=== PATIENT | male | born 1990 | race Caucasian/White ===

== ENCOUNTER 2020-03-13 11:41 | Emergency (ER) | payer BC ==
--- NOTE | 2020-03-13 12:39 | ER Document Report ---
ED Medical Screen (RME) - General Stated Complaint: ABDOMINAL PAIN, VOMITING BLOOD Time Seen by Provider: 03/13/20 12:31 Notes: Patient is a 29-year-old male who presents to the emergency department with a chief complaint of right lower and right upper abdominal pain. Patient states that the pain has been going on for the past 2 to 3 weeks. Patient states that over the past few days, he has had some streaks of blood in his vomit and will vomit every once in a while. Patient states that he started "power lifting" recently and was not sure if this was due to type. He denies any past medical history. He does not take any medications on a daily basis. Dates that he had a bowel movement this morning. Denies any melena stools. Exam: Tender right upper quadrant more than right lower. Exam limited due to patient in sitting position. I have greeted and performed a rapid initial assessment of this patient. A comprehensive ED assessment and evaluation of the patient, analysis of test results and completion of medical decision making process will be conducted by an additional ED providers. - Related Data Allergies/Adverse Reactions: No Known Allergies Allergy (Verified 03/13/20 12:33) Physical Exam - Vital signs Vitals: Temp Pulse Resp BP Pulse Ox 98.8 F 55 L 16 105/50 L 99 03/13/20 12:15 03/13/20 12:15 03/13/20 12:15 03/13/20 12:15 03/13/20 12:15 Course - Vital Signs Vital signs: Temp Pulse Resp BP Pulse Ox 98.8 F 55 L 16 105/50 L 99 03/13/20 12:15 03/13/20 12:15 03/13/20 12:15 03/13/20 12:15 03/13/20 12:15
[2020-03-13 14:00] LABS: ABSOLUTE EOSINOPHILS # (AUTO) 0.3 10^3/uL (0.0-0.6); ABSOLUTE LYMPHOCYTES (AUTO) 1.4 10^3/uL (0.5-4.7); ABSOLUTE MONOCYTES (AUTO) 0.5 10^3/uL (0.1-1.4); ABSOLUTE NEUT (AUTO) 4.8 10^3/uL (1.7-8.2); BASOPHILS % (AUTO) 0.6 % (0-2); EOSINOPHILS % (AUTO) 4.7 % (0-6); HEMATOCRIT 40.8 % (37.9-51.0); HEMOGLOBIN 14.7 g/dL (13.5-17.0); LYMPHOCYTES % (AUTO) 19.9 % (13-45); MEAN CORPUSCULAR HEMOGLOBIN 33.6 pg (27.0-33.4); MEAN CORPUSCULAR HGB CONC 36.1 g/dL (32.0-36.0); MEAN CORPUSCULAR VOLUME 93 fl (80-97); MONOCYTES % (AUTO) 7.2 % (3-13); PLATELET COUNT 261 10^3/uL (150-450); RED BLOOD COUNT 4.38 10^6/uL (4.35-5.55); RED CELL DISTRIBUTION WIDTH 12.7 % (11.5-14.0); SEGMENTED NEUTROPHILS % (AUTO) 67.6 % (42-78); TOTAL CELLS COUNTED % (AUTO) 100 %; WHITE BLOOD COUNT 7.1 10^3/uL (4.0-10.5)
--- NOTE | 2020-03-13 14:05 | RADIOLOGY REPORT (SQ) ---
EXAM DESCRIPTION: U/S ABDOMEN LIMITED W/O DOP IMAGES COMPLETED DATE/TIME: 03/13/2020 12:23 pm REASON FOR STUDY: Right sided abdominal pain COMPARISON: None. TECHNIQUE: Dynamic and static grayscale images acquired of the abdomen and recorded on PACS. Khario josé selected color Doppler and spectral images recorded. LIMITATIONS: None. FINDINGS: PANCREAS: Tail of the pancreas is not visualized due to overlying bowel gas. The head and body of the pancreas have normal contour. No pancreatic ductal dilation. LIVER: No masses. Echotexture normal. LIVER VASCULATURE: Normal directional flow of the main portal vein and hepatic veins. GALLBLADDER: Biliary sludge with possible gallstone at the gallbladder neck. No pericholecystic fluid . No wall thickening. ULTRASOUND-DETECTED FOUNTAIN'S SIGN: Positive. INTRAHEPATIC DUCTS AND COMMON DUCT: CBD and intrahepatic ducts normal caliber. No filling defects. INFERIOR VENA CAVA: Normal flow. AORTA: No aneurysm. RIGHT KIDNEY: Normal size. Normal echogenicity. No solid or suspicious masses. No hydronephrosis. No calcifications. PERITONEAL AND RIGHT PLEURAL SPACE: No ascites or effusions. OTHER: No other significant findings. IMPRESSION: 1. Biliary sludge with possible gallstone at the gallbladder neck. Positive sonographic Fountain sign. No gallbladder wall thickening or pericholecystic fluid. No biliary ductal dilation. Findings are equivocal for acute cholecystitis. Clinical correlation and correlation with laboratory values is r ecommended. TECHNICAL DOCUMENTATION: JOB ID: [id number] 2010 [employer]- All Rights Reserved Reading location - IP/workstation name: [email or web address]
[2020-03-13 14:17] LABS: ALBUMIN 4.3 g/dL (3.5-5.0); ALKALINE PHOSPHATASE 86 U/L (38-126); ANION GAP 6 (5-19); ASPARTATE AMINO TRANSFERASE 29 U/L (17-59); BILIRUBIN,DIRECT 0.4 mg/dL (0.0-0.4); BILIRUBIN,TOTAL 0.7 mg/dL (0.2-1.3); BLOOD UREA NITROGEN 11 mg/dL (7-20); CALCIUM 9.3 mg/dL (8.4-10.2); CARBON DIOXIDE 28 mmol/L (22-30); CHLORIDE 106 mmol/L (98-107); GLUCOSE 81 mg/dL (75-110); POTASSIUM 4.5 mmol/L (3.6-5.0)
[2020-03-13] MEDS ORDERED: NORMAL SALINE 1000 ML 1,000 ML IV ONE (15:09)
[2020-03-13] MEDS ORDERED: ONDANSETRON HCL INJ/PF 4 MG/2 ML SDV IV ONE (15:09)
[2020-03-13] MEDS ORDERED: HYDROMORPHONE HCL INJ/PF 2 MG/ML AMPULE IV ONE (15:09)
--- NOTE | 2020-03-13 15:29 | ER Document Report ---
ED GI/ - General Chief Complaint: Abdominal Pain Stated Complaint: ABDOMINAL PAIN, VOMITING BLOOD Time Seen by Provider: 03/13/20 12:31 Primary Care Provider: KORY SRINIVASAN MD [ACTIVE STAFF] - Follow up tomorrow MAISHA SYED MD [ACTIVE STAFF] - Follow up tomorrow Mode of Arrival: Ambulatory Information source: Patient Notes: This is a 29-year-old male here today for abdominal pain ongoing for 2 weeks. Pain is located in the right side of abdomen and is a sharp stabbing pain. The pain is 1-2 out of 10 for most of the day and flares up to an 8 out of 10 a couple times a day. He has associated vomiting with no nausea. Bending makes the pain worse and sitting still or lying still makes the pain better. He has tried ibuprofen [id number] with no relief. Food does not appear to worsen his pain symptoms. - HPI Patient complains to provider of: Abdominal pain Onset: Last week Timing/Duration: Constant Quality of pain: Sharp Severity at maximum: Severe Severity in ED: Moderate Location: RUQ, RLQ Associated symptoms: Vomiting. denies: Chills, Constipation, Diarrhea, Dysuria, Fever, Hematuria, Hurts to breath, Lightheaded, Loss of appetite, Nausea, Radiates to shoulder, Shortness of breath, Syncope Exacerbated by: Movement, Other - bending Relieved by: Remaining still Similar symptoms previously: No Recently seen / treated by doctor: No - Related Data Allergies/Adverse Reactions: amoxicillin [From Augmentin] Allergy (Verified 03/13/20 12:40) clavulanic acid [From Augmentin] Allergy (Verified 03/13/20 12:40) Past Medical History - General Information source: Patient - Social History Smoking Status: Current Every Day Smoker Chew tobacco use (# tins/day): No Frequency of alcohol use: Occasional Drug Abuse: Marijuana Occupation: technical services analyst Family History: Reviewed & Not Pertinent Patient has homicidal ideation: No - Past Medical History Cardiac Medical History: Reports: None Pulmonary Medical History: Reports: None EENT Medical History: Reports: None Neurological Medical History: Reports: None Endocrine Medical History: Reports: None Renal/ Medical History: Reports: None Malignancy Medical History: Reports None GI Medical History: Reports: None Musculoskeletal Medical History: Reports None Skin Medical History: Reports None Psychiatric Medical History: Reports: None Traumatic Medical History: Reports: None Infectious Medical History: Reports: None Surgical Hx: Negative Past Surgical History: Reports: None Review of Systems - Review of Systems Constitutional: No symptoms reported. denies: Chills, Fever, Weakness EENT: No symptoms reported. denies: Blurred vision, Double vision, Difficulty swallowing Cardiovascular: Chest pain - Last week, none recently. denies: Syncope, Dizziness Respiratory: No symptoms reported. denies: Cough, Short of breath Gastrointestinal: Abdominal pain, Vomiting - None today. denies: Diarrhea, Nausea, Constipation, Blood streaked bowels Genitourinary: No symptoms reported. denies: Dysuria, Flank pain Male Genitourinary: No symptoms reported Musculoskeletal: No symptoms reported Skin: No symptoms reported Hematologic/Lymphatic: No symptoms reported Neurological/Psychological: No symptoms reported. denies: Weakness, Gait changes Physical Exam - Vital signs Vitals: Temp Pulse Resp BP Pulse Ox 98.8 F 55 L 16 105/50 L 99 03/13/20 12:15 03/13/20 12:15 03/13/20 12:15 03/13/20 12:15 03/13/20 12:15 - General General appearance: Appears well In distress: Mild - HEENT Head: Normocephalic Eyes: Normal Conjunctiva: Normal Cornea: Normal Nasal: Normal Mouth/Lips: Normal - Respiratory Respiratory status: No respiratory distress Breath sounds: Normal - Cardiovascular Rhythm: Regular Heart sounds: Normal auscultation, S1 appreciated, S2 appreciated Murmur: No - Abdominal Inspection: Normal Distension: No distension Bowel sounds: Normal Tenderness: Tender, McBurney's point, Fountain's sign. No: Guarding Organomegaly: No organomegaly - Back Back: Normal, Nontender. No: CVA tenderness - Extremities General upper extremity: Normal inspection, Normal strength General lower extremity: Normal inspection, Normal strength - Neurological Cognition: Normal Orientation: AAOx4 [place] Coma Scale Verbal: Oriented Speech: Normal - Psychological Associated symptoms: Normal affect, Normal mood - Skin Skin Temperature: Warm Skin Moisture: Dry Skin Color: Normal Course - Re-evaluation Re-evalutation: 03/13/20 15:29 Dr. Srinivasan advised of patient presentation and ultrasound report findings. 03/13/20 18:34 Provider to bedside to update patient and family regarding patient status and test results thus far. Patient voiced concerns about not knowing what was going on and having concerns that he was possibly going to surgery. Patient advised that we are doing additional test to be certain he does not have an acute surgical problem and that the surgeon would be consulted to come and evaluate him once all of his test results were back. Patient reports that he is wanting to leave at this time although patient's mother is in agreement that patient should stay and finish his evaluation at this time. Patient states that the p ain is not severe only at a 2 out of 5 scale at this time although he just wants to leave. With encouragement from his mother, patient is agreeable with staying at this time, patient advised that medication could be given to help with his symptoms. Patient and mother voiced concerns about wanting to have a different primary nurse assigned to his care. Charge nurse Carissa advised, Kelly salinas assuming care from CORETTA Alcantara at this time. 03/13/20 19:10 Patient feeling better, patient appears more relaxed after dose of Ativan IV. Patient updated regarding results of his CT scan. Patient advised that Dr. Srinivasan would be consulted about his case and would be by to evaluate him. 03/13/20 19:17 Consulted with who does agree to evaluate patient in the emergency department. 03/13/20 19:49 Dr. Srinivasan was at bedside, he states that patient does not agree to stay at this time and would prefer to go home and follow-up on outpatient basis as needed. He advised having patient take Tylenol or Motrin [id number] as needed for pain relief. Patient encouraged to avoid fatty foods. Patient advised of worsening signs or symptoms that he should return immediately for. Patient verbalized understanding and is agreeable with discharge plan of care at this time. 03/13/20 20:57 - Vital Signs Vital signs: Temp Pulse Resp BP Pulse Ox 98.4 F 61 18 117/84 100 03/13/20 20:22 03/13/20 20:22 03/13/20 20:22 03/13/20 20:22 03/13/20 20:22 - Laboratory Result Diagrams: 03/13/20 13:44 03/13/20 13:44 Laboratory results interpreted by me: 03/13/20 03/13/20 13:44 15:15 MCH 33.6 H MCHC 36.1 H Urine Blood SMALL H 03/13/20 19:50 Labs- All tests 24 hr 03/13/20 03/13/20 03/13/20 13:44 13:44 15:15 WBC 7.1 RBC 4.38 Hgb 14.7 Hct 40.8 MCV 93 MCH 33.6 H MCHC 36.1 H RDW 12.7 Plt Count 261 Lymph % (Auto) 19.9 [place] % (Auto) 7.2 Eos % (Auto) 4.7 Baso % (Auto) 0.6 Absolute Neuts (auto) 4.8 Absolute Lymphs (auto) 1.4 Absolute Monos (auto) 0.5 Absolute Eos (auto) 0.3 Absolute Basos (auto) 0.0 Seg Neutrophils % 67.6 Sodium 140.0 Potassium 4.5 Chloride 106 Carbon Dioxide 28 Anion Gap 6 BUN 11 Creatinine 0.88 Est GFR ( Amer) > 60 Est GFR (MDRD) Non-Af > 60 Glucose 81 Calcium 9.3 Total Bilirubin 0.7 Direct Bilirubin 0.4 Neonat Total Bilirubin Not Reportable Neonat Direct Bilirubin Not Reportable Neonat Indirect Bili Not Reportable AST 29 ALT 26 Alkaline Phosphatase 86 Total Protein 7.0 Albumin 4.3 Lipase 52.3 Urine Color YELLOW Urine Appearance CLEAR Urine pH 6.0 Ur Specific [place] 1.018 Urine Protein NEGATIVE Urine Glucose (UA) NEGATIVE Urine Ketones NEGATIVE Urine Blood SMALL H Urine Nitrite NEGATIVE Urine Bilirubin NEGATIVE Urine Urobilinogen NEGATIVE Ur Leukocyte Esterase NEGATIVE Urine WBC (Auto) 9 Urine RBC (Auto) 1 Urine Mucus (Auto) MANY Urine Ascorbic Acid NEGATIVE - Diagnostic Test Radiology reviewed: Reports reviewed Discharge - Discharge Clinical Impression: Gall bladder disease Abdominal pain Qualifiers: Abdominal location: unspecified location Qualified Code(s): R10.9 - Unspecified abdominal pain Condition: Stable Disposition: HOME, SELF-CARE Instructions: Abdominal Pain ([facility]), Gallbladder Disease ([facility]) Additional Instructions: Return immediately for any new or worsening symptoms: Worsening pain, fever, vomiting, yellowing of the skin or eyes, or any concerning new symptoms Followup with your primary care provider, call tomorrow to make a followup appointment Follow up with surgeon on an outpatient basis, call their office tomorrow to make a follow-up appointment Forms: Return to Work Referrals: MAISHA SYED MD [ACTIVE STAFF] - Follow up tomorrow KORY SRINIVASAN MD [ACTIVE STAFF] - Follow up tomorrow
[2020-03-13 15:56] LABS: APPEARANCE,URINE CLEAR; BILIRUBIN,URINE NEGATIVE (NEGATIVE); COLOR,URINE YELLOW; GLUCOSE, URINE NEGATIVE (NEGATIVE); KETONES,URINE NEGATIVE (NEGATIVE); LEUKOCYTE ESTERASE,URINE NEGATIVE (NEGATIVE); NITRITE,URINE NEGATIVE (NEGATIVE); PROTEIN,URINE NEGATIVE (NEGATIVE); URINE SPECIFIC GRAVITY 1.018; UROBILINOGEN,URINE NEGATIVE mg/dL (<2.0)
[2020-03-13] MEDS ORDERED: LORAZEPAM INJ 2 MG/1 ML VIAL IV ONE (18:30)
--- NOTE | 2020-03-13 18:59 | RADIOLOGY REPORT (SQ) ---
EXAM DESCRIPTION: CT ABD/PELVIS WITH IV ONLY IMAGES COMPLETED DATE/TIME: 03/13/2020 6:40 pm REASON FOR STUDY: RLQ tenderness COMPARISON: None. TECHNIQUE: CT scan of the abdomen and pelvis performed using helical scanning technique with dynamic intravenous contrast injection. No oral contrast. Images reviewed with lung, soft tissue, and bone w indows. Reconstructed coronal and sagittal MPR images reviewed. Delayed images for evaluation of the urinary system also acquired. All images stored on PACS. All CT scanners at this facility use dose modulation, iterative reconstruction, and/or weight based d osing when appropriate to reduce radiation dose to as low as reasonably achievable (ALARA). [facility]: Dose Right [facility]: CareDose [facility]: Dose Right [facility]: Teradose 4D [facility]: [employer] CONTRAST TYPE AND DOSE: contrast/concentration: Isovue 350.00 mmol/ml; Total Contrast Delivered: 91. 9 ml; Total Saline Delivered: 72.0 ml RENAL FUNCTION: GFR > 60. RADIATION DOSE: CT Rad equipment meets quality standard of care and radiation dose reduction techniq ues were employed. CTDIvol: 17.2 - 20.5 mGy. DLP: 2077 mGy-cm.. LIMITATIONS: None. FINDINGS: LOWER CHEST: No significant findings. LIVER: Normal size. No enhancing masses. No dilated ducts. SPLEEN: Normal size. No focal lesions. PANCREAS: No masses identified. No significant calcifications. No adjacent inflammation or peripancre atic fluid collections. Pancreatic duct not dilated. GALLBLADDER: No calcified stones. No inflammatory changes to suggest cholecystitis. ADRENAL GLANDS: No significant masses. RIGHT KIDNEY AND URETER: No cysts identified. No solid masses identified. No calcified stones. No hyd ronephrosis or hydroureter. LEFT KIDNEY AND URETER: No cysts identified. No solid masses identified. No calcified stones. No hydr onephrosis or hydroureter. AORTA AND VESSELS: No aneurysm. No dissection. Renal arteries, SMA, celiac without significant stenos is. RETROPERITONEUM: No bulky retroperitoneal adenopathy. BOWEL AND PERITONEAL CAVITY: No obstruction or inflammatory changes. No free fluid. APPENDIX: Normal. PELVIS: No mass. No free fluid. Unremarkable bladder. ABDOMINAL WALL: No masses. No hernias. BONES: No acute findings. Mild -moderate degenerative disc disease at the L5-S1 level with moderate left neural foraminal narrowing. OTHER: No other significant finding. IMPRESSION: NO ACUTE FINDINGS IN THE ABDOMEN OR PELVIS ON CT SCAN WITH IV CONTRAST. TECHNICAL DOCUMENTATION: JOB ID: [id number] Quality ID # [id number]: Final reports with documentation of one or more dose reduction techniques (e.g., Au tomated exposure control, adjustment of the mA and/or kV according to patient size, use of iterative reconstruction technique) 2010 [employer]- All Rights Reserved Reading location - IP/workstation name: [email or web address]
--- NOTE | 2020-03-13 19:58 | PDOC CONSULTATION ---
Consultation Consult Date: 03/13/20 Provider Consulted: KORY SRINIVASAN Consult reason:: Right upper quadrant pains History of Present Illness Admission Date/PCP: NO LOCALMD History of Present Illness: NICHOLAS ANNE is a 29 year old male who is been having right upper quadrant pains for the past week and a half. This was apparently worse today and went to the ED where a CT scan of the abdomen was done which was unremarkable. However an ultrasound of the gallbladder this showed sludge with questionable gallstone cystic duct area with no evidence of acute cholecystitis. His white count is normal has been afebrile. He usually takes ibuprofen and smokes marijuana for the pain. He claims he would have occasional blood in his sputum. Denies any nausea no vomiting fever no chills. Past Medical History Cardiac Medical History: Reports: None Pulmonary Medical History: Reports: None EENT Medical History: Reports: None Neurological Medical History: Reports: None Endocrine Medical History: Reports: None Renal/ Medical History: Reports: None Malignancy Medical History: Reports: None GI Medical History: Reports: None Musculoskeltal Medical History: Reports: None Skin Medical History: Reports: None Psychiatric Medical History: Reports: None Traumatic Medical History: Reports: None Infectious Medical History: Reports: None Past Surgical History Past Surgical History: Reports: None Social History Smoking Status: Current Every Day Smoker Electronic Cigarette use?: No Family History Family History: Reviewed & Not Pertinent Parental Family History Reviewed: Yes Children Family History Reviewed: No Sibling(s) Family History Reviewed.: No Medication/Allergy Home Medications: No Home Medications 03/13/20 Allergies/Adverse Reactions: amoxicillin [From Augmentin] Allergy (Verified 03/13/20 12:40) clavulanic acid [From Augmentin] Allergy (Verified 03/13/20 12:40) Review of Systems Constitutional: PRESENT: as per HPI Gastrointestinal: PRESENT: abdominal pain Physical Exam Vital Signs: Temp Pulse Resp BP Pulse Ox 98.8 F 55 L 16 105/50 L 99 03/13/20 12:15 03/13/20 12:15 03/13/20 12:15 03/13/20 12:15 03/13/20 12:15 Intake & Output 03/12/20 03/13/20 03/14/20 06:59 06:59 06:59 Intake Total 1000 Balance 1000 Weight 122.3 kg General appearance: PRESENT: mild distress Head exam: PRESENT: atraumatic Eye exam: PRESENT: conjunctiva pink Mouth exam: PRESENT: moist Neck exam: PRESENT: full ROM Respiratory exam: PRESENT: clear to auscultation karthik Pulses: PRESENT: normal radial pulses Vascular exam: PRESENT: normal capillary refill GI/Abdominal exam: PRESENT: tenderness - Right upper quadrant Rectal exam: PRESENT: deferred Extremities exam: PRESENT: full ROM Musculoskeletal exam: PRESENT: ambulatory Neurological exam: PRESENT: alert, oriented to person, oriented to place, oriented to time, oriented to situation Psychiatric exam: PRESENT: anxious Skin exam: PRESENT: normal color, warm Results Laboratory Results: 03/13/20 13:44 03/13/20 13:44 03/13/20 03/13/20 03/13/20 13:44 13:44 15:15 WBC 7.1 RBC 4.38 Hgb 14.7 Hct 40.8 MCV 93 MCH 33.6 H MCHC 36.1 H RDW 12.7 Plt Count 261 Seg Neutrophils % 67.6 Sodium 140.0 Potassium 4.5 Chloride 106 Carbon Dioxide 28 Anion Gap 6 BUN 11 Creatinine 0.88 Est GFR ( Amer) > 60 Glucose 81 Calcium 9.3 Total Bilirubin 0.7 AST 29 Alkaline Phosphatase 86 Total Protein 7.0 Albumin 4.3 Lipase 52.3 Urine Color YELLOW Urine Appearance CLEAR Urine pH 6.0 Ur Specific [place] 1.018 Urine Protein NEGATIVE Urine Glucose (UA) NEGATIVE Urine Ketones NEGATIVE Urine Blood SMALL H Urine Nitrite NEGATIVE Ur Leukocyte Esterase NEGATIVE Urine WBC (Auto) 9 Urine RBC (Auto) 1 Impressions: Abdomen Ultrasound 03/13/20 12:36 IMPRESSION: 1. Biliary sludge with possible gallstone at the gallbladder neck. Positive sonographic Fountain sign. No gallbladder wall thickening or pericholecystic fluid. No biliary ductal dilation. Findings are equivocal for acute cholecyst itis. Clinical correlation and correlation with laboratory values is recommended. Abdomen/Pelvis CT 03/13/20 16:17 IMPRESSION: NO ACUTE FINDINGS IN THE ABDOMEN OR PELVIS ON CT SCAN WITH IV CONTRAST. Assessment & Plan - Diagnosis (1) Gallbladder sludge Is this a current diagnosis for this admission?: Yes (2) Right upper quadrant abdominal pain Is this a current diagnosis for this admission?: Yes - Time Time Spent: 30 to 50 Minutes - Plan Summary Plan Summary: 29-year-old male with about a week and a half right upper quadrant pains usually relieved with ibuprofen and smoking marijuana, pains are worse today and went to ED. CT scan of the abdomen showed no acute findings. Ultrasound of the gallbladder however showed gallbladder sludge with possible stone in the area of the cystic duct but no evidence of acute cholecystitis. His white count is norm al and no fever. Denies any fever fever chills nausea nor vomiting. He is mildly tender in the right upper quadrant. Options were given to the patient as far as requiring surgery. Based on the phy sical examination and lab findings, does not need any emergency gallbladder surgery at this time. At this point he would like to go home and take Tylenol as needed for pain. I told him to avoid any fatty food and if he develops any fever chills nausea vomiting or increasing pains then he is to go to an emergency room. Otherwise we can see him in the clinic in about a week.
[2020-03-13 20:23] VITALS: BP 117/84
== END 2020-03-13 20:23 | disposition home or self-care (01) ==
LOC: ER 11:41
DX: K82.9 Disease of gallbladder, unspecified (principal); K92.0 Hematemesis; R10.11 Right upper quadrant pain; F17.200 Nicotine dependence, unspecified, uncomplicated
CPT/HCPCS: 99285; 96361; 96374; 36415; 83690; 85025; 80053; 81001; 76705; 74177; J1170; J2060; J2405; J7030